=== PATIENT | female | born 1950 | race Caucasian/White ===

== ENCOUNTER 2022-12-03 11:22 | Day surgery (SDC) | payer MEDICARE, OTHER ==
[~2022-12-03] VITALS: Ht 162.6 cm; Wt 97.5 kg
[~2022-12-03 11:22] MED LIST: B121000 MC1 PO; CIPROFLOXACN500 MG PO; D-MANNOSE500 MG PO; MULTI VIT PO; OMEGA 3 PO; OMEGA 31000 MG PO; PRESERVISION ARED1 PO; VITAMIN B12 PO; [UNRECOGNIZED DRUG - OTHER] PO
[2022-12-03 14:17] VITALS: BP 120/80
== END 2022-12-03 14:35 | disposition home or self-care (01) ==
LOC: ORM 11:22
PROVIDERS: ATTEND Internal Medicine Gastroenterology
PROC: 0DBP8ZX Excision of Rectum, Via Natural or Artificial Opening Endoscopic, Diagnostic (ICD-10-PCS; principal; 2022-12-03)
PROC: 0DB78ZX Excision of Stomach, Pylorus, Via Natural or Artificial Opening Endoscopic, Diagnostic (ICD-10-PCS; 2022-12-03)
DX: K62.1 Rectal polyp (principal); K64.8 Other hemorrhoids; K29.50 Unspecified chronic gastritis without bleeding

== ENCOUNTER 2023-10-22 07:32 | Day surgery (SDC) | payer MEDICARE, OTHER ==
[~2023-10-22 07:32] MED LIST changes: +AZO BLADDER CON1 CAP; +OCUVIT1 PO
[2023-10-22] MEDS ORDERED: BENADRYL 25MG C25 MG PO (07:47)
[2023-10-22] MEDS ORDERED: LACTATED RINGER'S 1,000 ML IV ONE (07:50)
[2023-10-22] MEDS ORDERED: SODIUM CHLORIDE 1,000 ML BTL IR ONE (07:57)
[2023-10-22] MEDS ORDERED: LIDOcaine HCl 1% (Local Anesth.) 20 ML VIAL ONE (07:57)
[2023-10-22] MEDS ORDERED: STERILE WATER FOR IRRIGATION 1,000 ML BTL IR ONE (07:57)
[2023-10-22] MEDS ORDERED: CLINDAMYCIN PHOSPHATE IN D5W 50 ML IV ONE (08:14)
[2023-10-22] MEDS ORDERED: TRAMADOL HCL50 MG PO (09:52)
[2023-10-22] MEDS ORDERED: ACETAMINOPHEN 100 ML IV ONE (10:11)
[2023-10-22] MEDS ORDERED: SODIUM CHLORIDE 0.9% 10 ML SYR ONE (10:26)
[2023-10-22] MEDS ORDERED: HYDROmorphone HCL 2 MG/AMP ONE (10:26)
[2023-10-22 11:13] VITALS: BP 122/70
[2023-10-22] MEDS ORDERED: ONDANSETRON HCl 4 MG/2 ML SDV IV ONE (13:55)
[2023-10-22] MEDS ORDERED: PROPOFOL 200 MG/20 ML VIAL IV ONE (13:55)
[2023-10-22] MEDS ORDERED: LIDOCAINE HCL 2% 2ML SDV IV ONE (13:55)
== END 2023-10-22 12:00 | disposition home or self-care (01) ==
LOC: ORM 07:32
PROVIDERS: ATTEND Surgery
PROC: 0JBL0ZZ Excision of Right Upper Leg Subcutaneous Tissue and Fascia, Open Approach (ICD-10-PCS; principal; 2023-10-22)
DX: D17.23 Benign lipomatous neoplasm of skin and subcutaneous tissue of right leg (principal); E66.9 Obesity, unspecified
CPT/HCPCS: J0131; S0077

== ENCOUNTER 2024-10-12 09:59 | Emergency (ER) | payer MEDICARE, OTHER ==
[~2024-10-12] VITALS: Ht 162.6 cm; Wt 100.0 kg
[~2024-10-12 09:59] MED LIST changes: +BENADRYL 25MG C25 MG PO; +MEDDOSEPAK PO; +TRAMADOL HCL50 MG PO
[2024-10-12 11:47] VITALS: BP 150/70
[2024-10-12] MEDS ORDERED: LASIX20 MG PO (12:15)
[2024-10-12 13:54] VITALS: BP 150/70
== END 2024-10-12 14:02 | disposition home or self-care (01) ==
LOC: ED 09:59
DX: S46.912A Strain of unspecified muscle, fascia and tendon at shoulder and upper arm level, left arm, initial encounter (principal); S80.12XA Contusion of left lower leg, initial encounter; W01.0XXA Fall on same level from slipping, tripping and stumbling without subsequent striking against object, initial encounter